=== PATIENT | male | born 1950 | race Caucasian/White ===

== ENCOUNTER 2017-07-07 16:36 | Emergency (ER) | payer OTHER ==
[2017-07-07 16:43] VITALS: BP 144/71; BMI 34.4
--- NOTE | 2017-07-07 17:00 | DR.GENAD ---
HPI - PCP Primary Care Physician: JAIME - HPI Comment HPI Comment: PATIENTS CONDITION WORSE TODAY. HAVE TENSE SWELLING IN LOWER EXTREMITIES AND REDNESS IS GETTING WORSE. NO FEVER OR DRAINAGE. SLIGHT WEEPING PRESENT. - Complaint/Symptoms Chief Complaint Doctors Comments: EDEMA AND REDNESS FEET AND ANKLE FOR SEVERAL WEEKS. 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 LOWER EXTREMITIES WITH EDEMA AND REDNESS NOTED. Self Treatment fo Chief Complaint: BEEN TO DOCTOR - Nurses notes reviewed Nurses Notes Review: Yes - Source History Provided: Patient - Mode of Arrival Mode of Arrival: Ambulatory - Timing Onset of Chief Complaint: 05/26/17 Came on: Gradually - Duration Duration: Constant Duration: Days - Severity Severity: Moderate PMH - PMH Past Medical History: Yes Past Medical History: Anxiety, Arthritis, COPD, CVA, Hypertension, Sleep Apnea Past Surgical History: Yes Surgical History: Ortho Surgery, Other Past Surgical History Comment: STENTS PLACED IN LEG - Family History History of Family Medical Conditions: Yes Family Medical History: Diabetes Mellitus, Cancer, [place] - Social History Type of Tobacco Use: Cigarettes How many years tobacco product used: 40 Does any household member use tobacco: Yes Alcohol Use: None Do you use any recreational Drugs:: No Lives With: Family Lives Where: Home - infectious screening In the last 2 months have you had wt loss of >10#?: NO Have you had fever, night sweats or hemotysis?: No Have you traveled outside the country in the last 6 months?: No Isolation: Standard ROS - Review of Systems Constitutional: Weakness, Fatigue. negative: Chills, Fever Eyes: No Symptoms Reported. negative: Eye Pain, Discharge ENTM: negative: Ear Pain, Nose Discharge, Nose Congestion, Throat Pain Respiratoy: Non-Productive Cough, Short of Breath, Wheezing. negative: Productive Cough, Hemoptysis Cardiovascular: Chest Pain, Edema. negative: Palpitations Gastrointestinal/Abdominal: No Symptoms Reported. negative: Abdominal Pain, Diarrhea, Nausea, Vomiting Genitourinary: No Symptoms Reported, Other (INCEASE URINE OUTPUT DUE TO LASIX.) . negative: Dysuria, Frequency, Hematuria Neurological: Weakness. negative: Headache, Dizziness Musculoskeletal: Joint Pain, Joint Swelling, Muscle Pain Integumentary: Change in Color, Rash Hematologic/Lymphatic: Easy Bleeding, Easy Bruising Endocrine: No Symptoms Reported All Other Systems: Reviewed and Negative PE - Vital Signs Vitals: Temperature 98.3 F Pulse Rate 69 Respiratory Rate 20 Blood Pressure 144/71 O2 Sat by Pulse Oximetry 98 - General Limitations: No Limitations General Appearance: Alert - Head Head Exam: Normal Inspection - Eyes Eye exam: Normal Appearance - ENT ENT Exam: Normal External Ear Exam External Ear Exam: Normal External Inspection TM/Canal Exam: Bilateral Normal Nose Exam: Normal Nose Exam Mouth Exam: Normal Inspection Throat Exam: Normal Inspection - Neck Neck Exam: Trachea Midline. negative: Tenderness, Meningismus, Lymphadenopathy - Chest Chest Inspection: Symmetric Chest Wall Rise - Respiratory Respiratory Exam: Respiratory Distress. negative: Chest Wall Tenderness Respiratory Exam: Bilateral Wheezing, Bilateral Rhonchi, Upper Rhonchi, Lower Wheezing, Lower Rhonchi - Cardiovascular Cardiovascular Exam: Regular Rate, Normal Rhythm, Normal Heart Sounds - Abdominal Exam Abdominal Exam: Normal Bowel Sounds, Soft. negative: Tenderness - Extremities Extremities Exam: Tenderness (BILATERAL TENDERNESS FEET AND ANKLE.), Edema, Joint Swelling - Back Back Exam: Normal Inspection - Neurologic Neurological Exam: Alert, Oriented X3 - Psychiatric Psychiatric Exam: Normal Affect, Normal Mood - Skin Skin Exam: Erythema MDM - Differential Diagnosis Differential Diagnosis: EDEMA, CELLULITIS, DVT Course - Treatment Treatment: SEE ORDERS. - Education/Counseling Education/Counseling: Patient, Family, Education Educated On: Treatment, Diagnosis, Needs for Follow Up ROR - Labs Reviewed Laboratory Results Reviewed?: Yes Result Diagrams: 07/07/17 17:22 07/07/17 17:22 Laboratory: WBC 8.4 X10^3/uL (3.6-10.0) 07/07/17 17:22 RBC 4.69 X10^6/uL (4.7-6.0) L 07/07/17 17:22 Hgb 14.2 g/dL (13.5-18.0) 07/07/17 17:22 Hct 41.9 % (42.0-54.0) L 07/07/17 17:22 MCV 89.4 fL (80.0-100.0) 07/07/17 17:22 MCH 30.3 pg (27.0-34.0) 07/07/17 17:22 MCHC 33.9 g/dL (33.0-35.0) 07/07/17 17:22 RDW 15.8 % (11.6-16.5) 07/07/17 17:22 Plt Count 167 X10^3/uL (150.0-450.0) 07/07/17 17:22 Plt Count Comment Adequate (ADEQUATE) 07/07/17 17: MPV 9.3 fL (7.4-11.0) 07/07/17 17:22 Neut % 93.2 % (42.0-75.0) H 07/07/17 17: Lymph % 4.2 % (21.0-51.0) L 07/07/17 17:22 [place]da % 2.1 % (0.0-13.0) 07/07/17 17:22 Eos % 0.2 % (0.9-2.9) L 07/07/17 17:22 Baso % 0.3 % (0.2-1.0) 07/07/17 17: Neut # 7.8 x10^3/uL (2.2-4.8) H 07/07/17 17: Lymph # 0.4 X10^3/uL (1.3-2.9) L 07/07/17 17:22 Ida # 0.2 x10^3/uL (0.3-0.8) L 07/07/17 17:22 Eos # 0.0 x10^3/uL (0.0-0.2) 07/07/17 17:22 Baso # 0.0 X10^3/uL (0.0-0.1) 07/07/17 17:22 Absolute Nucleated RBC 0.1 /100WBC 07/07/17 17:22 Total Counted 100 07/07/17 17:22 Neutrophils % (Manual) 89 % (39-76) H 07/07/17 17:22 Band Neutrophils % 3 % (0-10) 07/07/17 17:22 Lymphocytes % (Manual) 6 % (13-43) L 07/07/17 17:22 Monocytes % (Manual) 2 % (4-9) L 07/07/17 17:22 Plt Morphology Comment Normal (NORMAL) 07/07/17 17:22 RBC Morphology Normal (NORMAL) 07/07/17 17:22 Sodium 139 mmol/L (136-145) 07/07/17 17:22 Corrected Sodium 139 mmol/L (136-145) 07/07/17 17:22 Potassium 4.4 mmol/L (3.5-5.1) 07/07/17 17:22 Chloride 102 mmol/L (98-107) 07/07/17 17:22 Carbon Dioxide 28.4 mmol/L (21-32) 07/07/17 17:22 BUN 18 mg/dL (7-18) 07/07/17 17:22 Creatinine 1.47 mg/dL (0.70-1.30) H 07/07/17 17:22 Est GFR (MDRD) Af Amer > 60 (>60) 07/07/17 17:22 Est GFR (MDRD) Non-Af 51 (>60) L 07/07/17 17:22 Glucose 120 mg/dL (65-99) H 07/07/17 17:22 Calcium 8.7 mg/dL (8.5-10.1) 07/07/17 17:22 Corrected Calcium TNP 07/07/17 17:22 Total Bilirubin 0.50 mg/dL (0.2-1.0) 07/07/17 17:22 AST 15 Units/L (15-37) 07/07/17 17:22 ALT 19 Units/L (12-78) 07/07/17 17:22 Alkaline Phosphatase 110 Units/L (46-116) 07/07/17 17:22 Creatine Kinase 64 Units/L (39-308) 07/07/17 17:22 CK-MB (CK-2) 1.7 ng/mL (0-4.0) 07/07/17 17:22 CK/CKMB % Calc 2.7 % (<4) 07/07/17 17:22 Troponin I < 0.02 ng/mL (0-1.5) 07/07/17 17:22 B-Natriuretic Peptide 66.3 pg/mL (0-79) 07/07/17 17:22 Total Protein 7.5 g/dL (6.4-8.2) 07/07/17 17:22 Albumin 3.6 g/dL (3.4-5.0) 07/07/17 17:22 Globulin 3.9 g/dL (2.5-4.5) 07/07/17 17:22 Albumin/Globulin Ratio 0.9 Ratio (1.1-2.1) L 08/14/17 17:22 Specimen Type Clean catch urine 07/07/17 17:16 Urine Color Pale yellow (YELLOW) 07/07/17 17:16 Urine Appearance Clear (CLEAR) 07/07/17 17:16 Urine pH 7.0 (5.0 - 8.0) 07/07/17 17:16 Ur Specific [place] 1.010 (1.000-1.030) 07/07/17 17:16 Urine Protein Negative (NEGATIVE) 07/07/17 17:16 Urine Glucose (UA) Negative (NEGATIVE) 07/07/17 17:16 Urine Ketones Negative (NEGATIVE) 07/07/17 17:16 Urine Occult Blood Negative (NEGATIVE) 07/07/17 17:16 Urine Nitrite Negative (NEGATIVE) 07/07/17 17:16 Urine Bilirubin Negative (NEGATIVE) 07/07/17 17:16 Urine Urobilinogen Normal (NORMAL) 07/07/17 17:16 Ur Leukocyte Esterase Negative (NEGATIVE) 07/07/17 17:16 Urine RBC None seen /HPF (NEGATIVE) 07/07/17 17:16 Urine WBC None seen /HPF (NEGATIVE) 07/07/17 17:16 Ur Squamous Epith Cells Rare /HPF (NEGATIVE) 07/07/17 17:16 Urine Bacteria Negative /HPF (NEGATIVE) 07/07/17 17:16 Ur Culture Indicated? No/not indicated 07/07/17 17:16 - XRAY XRAY Interpreted by: Radiologist XRAY Findings: REPORT DISCUSS WITH PATIEN - EKG Rhythm: NSR - Diagnosis Discharge Problem: COPD, moderate Edema Qualifiers: Edema type: localized Qualified Code(s): R60.0 - Localized edema Cellulitis Qualifiers: Site of cellulitis: extremity Site of cellulitis of extremity: lower extremity Laterality: unspecified laterality Qualified Code(s): L03.119 - Cellulitis of unspecified part of limb Chest pain Qualifiers: Chest pain type: intercostal pain Qualified Code(s): R07.82 - Intercostal pain - Discharge Plan Disposition: 01 HOME, SELF-CARE Condition: Stable - Follow ups/Referrals Follow ups/Referrals: AVINASH BRIAN [Primary Care Provider] - 07/08/17 - Instructions Instructions: Cellulitis, Adult, Eyzo-me-[id number], Edema, [id number] Additional Instructions: RETURN TO ED IF WORSE. ELEVATE LOWER EXTREMITIES.
[2017-07-07 17:30] LABS: BILIRUBIN,URINE NEGATIVE (NEGATIVE); BLOOD/HEMOGLOBIN,URINE NEGATIVE (NEGATIVE); GLUCOSE, URINE NEGATIVE (NEGATIVE); KETONES,URINE NEGATIVE (NEGATIVE); LEUKOCYTE ESTERASE ,URINE NEGATIVE (NEGATIVE); NITRITES,URINE NEGATIVE (NEGATIVE); PROTEIN,URINE NEGATIVE (NEGATIVE); UROBILINOGEN,URINE NORMAL (NORMAL)
[2017-07-07 17:38] LABS: BASOPHILS % (AUTO) 0.3 % (0.2-1.0); EOSINOPHILS % (AUTO) 0.2 % (0.9-2.9); HEMATOCRIT 41.9 % (42.0-54.0); HEMOGLOBIN 14.2 g/dL (13.5-18.0); LYMPHOCYTES # (AUTO) 0.4 X10^3/uL (1.3-2.9); LYMPHOCYTES % (AUTO) 4.2 % (21.0-51.0); MEAN CORPUSCULAR HEMOGLOBIN 30.3 pg (27.0-34.0); MEAN CORPUSCULAR HGB CONC 33.9 g/dL (33.0-35.0); MEAN CORPUSCULAR VOLUME 89.4 fL (80.0-100.0); MEAN PLATELET VOLUME 9.3 fL (7.4-11.0); MONOCYTES # (AUTO) 0.2 x10^3/uL (0.3-0.8); MONOCYTES % (AUTO) 2.1 % (0.0-13.0); NEUTROPHILS # (AUTO) 7.8 x10^3/uL (2.2-4.8); NEUTROPHILS % (AUTO) 93.2 % (42.0-75.0); PLATELET COUNT 167 X10^3/uL (150.0-450.0); RED BLOOD COUNT 4.69 X10^6/uL (4.7-6.0); RED CELL DISTRIBUTION WIDTH 15.8 % (11.6-16.5); WHITE BLOOD COUNT 8.4 X10^3/uL (3.6-10.0)
[2017-07-07 17:43] LABS: APPEARANCE,URINE CLEAR (CLEAR); BACTERIA,URINE NEGATIVE /HPF (NEGATIVE); COLOR,URINE PALE YELLOW (YELLOW); RBC,URINE NONE SEEN /HPF (NEGATIVE); SQUAMOUS EPITHELIAL CELL,UR RARE /HPF (NEGATIVE)
--- NOTE | 2017-07-07 17:55 | RAD ---
HISTORY: Bilateral feet and leg edema. Study: Chest one view Comparison: None available for direct comparison. Findings: The trachea is midline. The cardiac silhouette is enlarged. There is mild central pulmonary vascula r congestion. No significant interstitial edema is appreciated. The lungs are clear without focal i nfiltrate or effusion. The bony thorax is unremarkable. IMPRESSION: 1. Cardiomegaly with central pulmonary vascular congestion. No significant interstitial edema. Reported By:
[2017-07-07 17:58] LABS: BLOOD UREA NITROGEN 18 mg/dL (7-18); CALCIUM 8.7 mg/dL (8.5-10.1); CARBON DIOXIDE 28.4 mmol/L (21-32); CHLORIDE 102 mmol/L (98-107); COR NA(FOR HYPERGLY) 139 mmol/L (136-145); CREATININE 1.47 mg/dL (0.70-1.30); GLUCOSE 120 mg/dL (65-99); SODIUM 139 mmol/L (136-145); TROPONIN I < 0.02 ng/mL (0-1.5); eGFR BLACK RACES > 60 (>60); eGFR NON BLACK RACES 51 (>60)
[2017-07-07 18:01] LABS: ALANINE AMINOTRANSFERASE 19 Units/L (12-78); ALBUMIN 3.6 g/dL (3.4-5.0); ALKALINE PHOSPHATASE 110 Units/L (46-116); ASPARTATE AMINO TRANSFERASE 15 Units/L (15-37); CKMB % 2.7 % (<4); CREATINE KINASE 64 Units/L (39-308); CREATINE KINASE MB 1.7 ng/mL (0-4.0); TOTAL PROTEIN 7.5 g/dL (6.4-8.2)
[2017-07-07 18:09] LABS: BAND NEUTROPHILS % 3 % (0-10); PLATELET MORPHOLOGY COMMENT NORMAL (NORMAL)
[2017-07-07 18:10] LABS: B-TYPE NATRIURETIC PEPTIDE 66.3 pg/mL (0-79)
[2017-07-07] MEDS ORDERED: LASIX IVP ONE ×2 (19:24→19:30)
[2017-07-07] MEDS ORDERED: BACTRIM DS TAB PO ONE ×2 (19:25→19:30)
== END 2017-07-07 20:14 | disposition home or self-care (01) ==
LOC: ER 16:48
DX: L03.119 Cellulitis of unspecified part of limb (principal); R07.82 Intercostal pain; R60.0 Localized edema; J44.9 Chronic obstructive pulmonary disease, unspecified
CPT/HCPCS: 36415; 71010; 80053; 81001; 82550; 82553; 83880; 84484; 85025; 87040; 93005; 93010; 96365; 96374; 99283; A4222; J1940

== ENCOUNTER → 2018-03-19 | Outpatient (CLI) | payer OTHER ==
[2018-03-19 16:41] LABS: BASOPHILS # (AUTO) 0.1 X10^3/uL (0.0-0.1); BASOPHILS % (AUTO) 1.2 % (0.2-1.0); EOSINOPHILS # (AUTO) 0.2 x10^3/uL (0.0-0.2); EOSINOPHILS % (AUTO) 2.6 % (0.9-2.9); HEMATOCRIT 37.9 % (42.0-54.0); HEMOGLOBIN 12.8 g/dL (13.5-18.0); LYMPHOCYTES % (AUTO) 11.2 % (21.0-51.0); MEAN CORPUSCULAR HEMOGLOBIN 30.4 pg (27.0-34.0); MEAN CORPUSCULAR HGB CONC 33.8 g/dL (33.0-35.0); MEAN CORPUSCULAR VOLUME 89.8 fL (80.0-100.0); MEAN PLATELET VOLUME 8.8 fL (7.4-11.0); MONOCYTES # (AUTO) 0.7 x10^3/uL (0.3-0.8); NEUTROPHILS # (AUTO) 6.8 x10^3/uL (2.2-4.8); PLATELET COUNT 224 X10^3/uL (150.0-450.0); RED BLOOD COUNT 4.22 X10^6/uL (4.7-6.0); RED CELL DISTRIBUTION WIDTH 15.9 % (11.6-16.5); WHITE BLOOD COUNT 8.8 X10^3/uL (3.6-10.0)
[2018-03-19 16:44] LABS: BLOOD UREA NITROGEN 12 mg/dL (7-18); CALCIUM 8.5 mg/dL (8.5-10.1); CARBON DIOXIDE 29.4 mmol/L (21-32); CHLORIDE 102 mmol/L (98-107); CREATININE 1.16 mg/dL (0.70-1.30); SODIUM 138 mmol/L (136-145); eGFR BLACK RACES > 60 (>60); eGFR NON BLACK RACES > 60 (>60)
== END ==
LOC: LAB 16:13
PROVIDERS: ATTEND Surgery Vascular Surgery
DX: Z01.812 Encounter for preprocedural laboratory examination (principal); I70.235 Atherosclerosis of native arteries of right leg with ulceration of other part of foot
CPT/HCPCS: 36415; 80048; 85025

== ENCOUNTER 2018-10-20 13:31 | Observation (INO) ==
--- NOTE | 2018-10-20 14:36 | DR.EXTPAIN ---
HPI Time seen Time Seen by Provider: 10/20/18 14:20 PCP Primary Care Physician: CHIP PAUL HPI Comment HPI Comment: PATIENT SAID IT STARTED A SMALL PUSTULAR LESION. IF DRAIN PUS THEN STARTED TO BLEED. NOW BOTH BLOOD AND PUS DRAING. INCREASING SWELLING AND PAIN WITH REDNESS DEVELOPING. NO FEVER. Complaint/Symptoms Chief Complaint Doctor Comments: RIGHT LOWER EXTREMITY PAIN WITH INFECTED WOUND AND REDNESS TIMES 5 DAYS. Chief Complaint:: PT STATES ABOUT 5 DAYS AGO HE WOKE UP AND NOTICED THAT HE HAD A KNOT ON THE FRONT OF RIGHT LEG. DOESN'T REMEMBER BUMPING IT ON ANYTHING. SINCE THEN THE AREA HAS BEEN DRAINING PUSS. PT CALLED DR WARE, VASCULAR SURGEON, WHO INSTRUCTED HIM TO COME TO ER. Self Treatment fo Chief Complaint: PT'S HAS BEEN CLEANING WITH DAKINS TWICE DAILY. Nurses notes reviewed Nurses Notes Review: Yes Source History Provided: Patient Mode of arrival Mode of Arrival: Ambulatory Timing Onset of Chief Complaint: 10/16/18 Context History of: None Associated signs and symptoms Associated Signs and Symptoms: Pain, Swelling, Bruising and Shortness of Breath PMH PMH Past Medical History: Yes Past Medical History: COPD, Dyslipidemia, Hypertension and Sleep Apnea Past Medical History Comment: PVD Past Surgical History: Yes Past Surgical History Comment: MULTIPLE EYE SURGERIES, STENTS IN LEFT LEG X 3 Family History History of Family Medical Conditions: Yes Family Medical History: Diabetes Mellitus, Cancer, Coronary Artery Disease and Hypertension Social History Does patient currently use any type of tobacco product: Yes Have you used tobacco products in the last 12 months: No Type of Tobacco Use: Cigarettes Does any household member use tobacco: Yes Alcohol Use: None Do you use any recreational Drugs:: No Lives With: Spouse Lives Where: Home infectious screening In the last 2 months have you had wt loss of >10#?: NO Have you had fever, night sweats or hemotysis?: No Have you traveled outside the country in the last 6 months?: No Isolation: Standard ROS Review of Systems Constitutional: Fatigue; negative Chills and Fever Eyes: No Symptoms Reported; negative Eye Pain and Discharge ENTM: Nose Congestion Respiratoy: Non-Productive Cough, Short of Breath and Wheezing Cardiovascular: Edema Gastrointestinal/Abdominal: No Symptoms Reported Genitourinary: No Symptoms Reported Neurological: Headache and Dizziness Musculoskeletal: Muscle Pain, Right, Leg, Ankle and Foot Integumentary: Rash, Itching and Wound (WOUND, DRAINING MID ANTERIOR LEG RT SIDE.) Endocrine: No Symptoms Reported Psychiatric: No Symptoms Reported All Other Systems: Reviewed and Negative PE Vital Signs Vitals: Temperature 97.6 F Pulse Rate [Right Brachial] 63 Pulse Rate 81 Respiratory Rate 18 Blood Pressure [Right Arm] 160/72 Blood Pressure 131/61 O2 Sat by Pulse Oximetry 99 General Limitations: No Limitations General Appearance: Alert and In No Apparent Distress Head Head Exam: Normal Inspection Eyes Eye exam: Normal Appearance ENT ENT Exam: Normal Oropharynx, Normal External Ear Exam, Mucous Membranes Moist and TM's Normal Bilaterally Neck Neck Exam: Trachea Midline; negative Tenderness, Meningismus and Lymphadenopathy Chest Chest Inspection: Symmetric Chest Wall Rise Respiratory Respiratory Exam: Normal Lung Sounds Bilat Respiratory Exam: Bilateral: Rhonchi and Lower: Rhonchi Cardiovascular Cardiovascular Exam: Regular Rate and Normal Rhythm Abdominal Exam Abdominal Exam: Normal Bowel Sounds; negative Tenderness Extremities Extremities Exam: Tenderness (RIGHT LEG REDNESS WITH DRAINING WOUND.) Lower Extremities Neurovascular/Tendon Exam: Normal Capillary Refill; negative Pulse Deficit, Motor Deficit and Sensory Deficit Gait Exam: Observed & Limited by Pain Back Back Exam: Normal Inspection Neurological Neurological Exam: Alert, Oriented X3 and CN II-XII Intact; negative Motor Sensory Deficit Psychiatric Psychiatric Exam: Normal Affect and Normal Mood Skin Type of Lesion: Abscess Distribution: RLE Description: Tenderness, Erythematous and Swelling MDM Differential Diagnosis Differential Diagnosis: Other (CELLULITIS AND DRAINIG WOUND RIGHT LEG.) COURSE Treatment Treatment: SEE ORDERS. Consultation Consultation Comments: DISCUSS PATIENT WITH DR. RODAS, HE WILL ADMIT PATIENT. Education/Counseling Education/Counseling: Patient and Family Educated On: Diagnosis ROR Labs Reviewed Laboratory Results Reviewed?: Yes Result Diagrams: 10/20/18 14:50 10/20/18 14:50 Laboratory: 10/20/18 14:52 Leg - Right Gram Stain - Final WBC 7.0 X10^3/uL (3.6-10.0) 10/20/18 14:50 RBC 4.35 X10^6/uL (4.7-6.0) L 10/20/18 14:50 Hgb 13.2 g/dL (13.5-18.0) L 10/20/18 14:50 Hct 39.0 % (42.0-54.0) L 10/20/18 14:50 MCV 89.7 fL (80.0-100.0) 10/20/18 14:50 MCH 30.3 pg (27.0-34.0) 10/20/18 14:50 MCHC 33.7 g/dL (33.0-35.0) 10/20/18 14:50 RDW 15.9 % (11.6-16.5) 10/20/18 14:50 Plt Count 336 X10^3/uL (150.0-450.0) 10/20/18 14:50 MPV 8.1 fL (7.4-11.0) 10/20/18 14:50 Neut % (Auto) 81.8 % (42.0-75.0) H 10/20/18 14:50 Lymph % (Auto) 10.2 % (21.0-51.0) L 10/20/18 14:50 [place] % (Auto) 5.3 % (0.0-13.0) 10/20/18 14:50 Eos % (Auto) 2.1 % (0.9-2.9) 10/20/18 14:50 Baso % (Auto) 0.6 % (0.2-1.0) 10/20/18 14:50 Neut # (Auto) 5.7 x10^3/uL (2.2-4.8) H 10/20/18 14:50 Lymph # (Auto) 0.7 X10^3/uL (1.3-2.9) L 10/20/18 14:50 [place] # (Auto) 0.4 x10^3/uL (0.3-0.8) 10/20/18 14:50 Eos # (Auto) 0.1 x10^3/uL (0.0-0.2) 10/20/18 14:50 Baso # (Auto) 0.0 X10^3/uL (0.0-0.1) 10/20/18 14:50 Absolute Nucleated RBC 0.0 /100WBC 10/20/18 14:50 Sodium 139 mmol/L (136-145) 10/20/18 14:50 Corrected Sodium TNP 10/20/18 14:50 Potassium 4.0 mmol/L (3.5-5.1) 10/20/18 14:50 Chloride 102 mmol/L (98-107) 10/20/18 14:50 Carbon Dioxide 27.1 mmol/L (21-32) 10/20/18 14:50 BUN 6 mg/dL (7-18) L 10/20/18 14:50 Creatinine 1.07 mg/dL (0.70-1.30) 10/20/18 14:50 Est GFR (MDRD) Af Amer > 60 (>60) 10/20/18 14:50 Est GFR (MDRD) Non-Af > 60 (>60) 10/20/18 14:50 Glucose 95 mg/dL (65-99) 10/20/18 14:50 Lactic Acid 0.9 mmol/L (0.4-2.0) 10/20/18 14:50 Calcium 8.5 mg/dL (8.5-10.1) 10/20/18 14:50 Corrected Calcium 9.3 mg/dL (8.5-10.1) 10/20/18 14:50 Total Bilirubin 0.40 mg/dL (0.2-1.0) 10/20/18 14:50 AST 16 Units/L (15-37) 10/20/18 14:50 ALT 18 Units/L (12-78) 10/20/18 14:50 Alkaline Phosphatase 107 Units/L (46-116) 10/20/18 14:50 C-Reactive Protein 36.50 mg/L (0-3.0) H 10/20/18 14:50 Total Protein 7.1 g/dL (6.4-8.2) 10/20/18 14:50 Albumin 3.0 g/dL (3.4-5.0) L 10/20/18 14:50 Globulin 4.1 g/dL (2.5-4.5) 10/20/18 14:50 Albumin/Globulin Ratio 0.7 Ratio (1.1-2.1) L 10/20/18 14:50 XRAY XRAY Interpreted by: Radiologist XRAY Findings: REPORT DISCUSS WITH PATIENT. EKG [place]: Normal Rhythm: NSR
[2018-10-20 15:09] LABS: BASOPHILS % (AUTO) 0.6 % (0.2-1.0); EOSINOPHILS # (AUTO) 0.1 x10^3/uL (0.0-0.2); EOSINOPHILS % (AUTO) 2.1 % (0.9-2.9); HEMOGLOBIN 13.2 g/dL (13.5-18.0); LYMPHOCYTES # (AUTO) 0.7 X10^3/uL (1.3-2.9); LYMPHOCYTES % (AUTO) 10.2 % (21.0-51.0); MEAN CORPUSCULAR HEMOGLOBIN 30.3 pg (27.0-34.0); MEAN CORPUSCULAR HGB CONC 33.7 g/dL (33.0-35.0); MEAN CORPUSCULAR VOLUME 89.7 fL (80.0-100.0); MEAN PLATELET VOLUME 8.1 fL (7.4-11.0); MONOCYTES # (AUTO) 0.4 x10^3/uL (0.3-0.8); MONOCYTES % (AUTO) 5.3 % (0.0-13.0); NEUTROPHILS # (AUTO) 5.7 x10^3/uL (2.2-4.8); NEUTROPHILS % (AUTO) 81.8 % (42.0-75.0); PLATELET COUNT 336 X10^3/uL (150.0-450.0); RED BLOOD COUNT 4.35 X10^6/uL (4.7-6.0); RED CELL DISTRIBUTION WIDTH 15.9 % (11.6-16.5)
--- NOTE | 2018-10-20 15:11 | RAD ---
Exam: Right lower leg two views History: 67-year-old male who presents with soft tissue swelling along the anterior aspect of the right lower leg. No reported history of trauma Comparison: None Findings: AP and lateral views of the right tibia and fibula demonstrate no evidence of acute bony abnormality. No radiographic signs of osteomyelitis. No radiopaque foreign body is identified. Impression: Negative radiographs of the right tibia and fibula. Reported By:
[2018-10-20 15:29] LABS: ALANINE AMINOTRANSFERASE 18 Units/L (12-78); ALKALINE PHOSPHATASE 107 Units/L (46-116); ASPARTATE AMINO TRANSFERASE 16 Units/L (15-37); BLOOD UREA NITROGEN 6 mg/dL (7-18); CALCIUM 8.5 mg/dL (8.5-10.1); CARBON DIOXIDE 27.1 mmol/L (21-32); CHLORIDE 102 mmol/L (98-107); COR CA(FOR HYPOALB) 9.3 mg/dL (8.5-10.1); CREATININE 1.07 mg/dL (0.70-1.30); SODIUM 139 mmol/L (136-145); TOTAL PROTEIN 7.1 g/dL (6.4-8.2); eGFR NON BLACK RACES > 60 (>60)
[2018-10-20 15:33] LABS: LACTIC ACID 0.9 mmol/L (0.4-2.0)
[2018-10-20] MEDS ORDERED: MOTRIN TAB 600 MG PO PRN (17:43)
[2018-10-20] MEDS ORDERED: ZOFRAN INJ 4 MG VIAL IVP PRN (17:43)
[2018-10-20] MEDS ORDERED: MORPHINE SULFATE INJ 2 MG INJ IVP PRN (17:43)
[2018-10-20] MEDS ORDERED: PHARMACY CONSULT - VANCOMYCIN XX SCH (18:00)
[2018-10-20 19:11] VITALS: BMI 31.8
[2018-10-20] MEDS ORDERED: NS 250 ML IV 250 ML IV SCH (19:30)
[2018-10-20] MEDS ORDERED: NS 1000 ML 1,000 ML IV SCH (20:00)
[2018-10-20] MEDS: VANCOMYCIN HCL 1 GM VIAL 1 G in D5W 250 ML IV 250 ML IV SCH (20:37)
[2018-10-20] MEDS: XANAX PO SCH ×2 (20:38→21:52)
[2018-10-20] MEDS: ZOSYN VIAL 3.375 GRAMS 3.375 G in NS 100 ML IV + SPIKE MINIBAG* 100 ML IV SCH (21:52)
[2018-10-21] MEDS: ZOSYN VIAL 3.375 GRAMS 3.375 G in NS 100 ML IV + SPIKE MINIBAG* 100 ML IV SCH ×2 (05:11→14:30)
[2018-10-21 05:21] LABS: BASOPHILS % (AUTO) 0.6 % (0.2-1.0); EOSINOPHILS # (AUTO) 0.2 x10^3/uL (0.0-0.2); EOSINOPHILS % (AUTO) 2.9 % (0.9-2.9); HEMATOCRIT 35.4 % (42.0-54.0); HEMOGLOBIN 11.8 g/dL (13.5-18.0); LYMPHOCYTES # (AUTO) 0.8 X10^3/uL (1.3-2.9); LYMPHOCYTES % (AUTO) 14.3 % (21.0-51.0); MEAN CORPUSCULAR HEMOGLOBIN 29.9 pg (27.0-34.0); MEAN CORPUSCULAR HGB CONC 33.3 g/dL (33.0-35.0); MEAN CORPUSCULAR VOLUME 89.8 fL (80.0-100.0); MONOCYTES # (AUTO) 0.4 x10^3/uL (0.3-0.8); MONOCYTES % (AUTO) 6.3 % (0.0-13.0); NEUTROPHILS # (AUTO) 4.5 x10^3/uL (2.2-4.8); NEUTROPHILS % (AUTO) 75.9 % (42.0-75.0); PLATELET COUNT 305 X10^3/uL (150.0-450.0); RED BLOOD COUNT 3.94 X10^6/uL (4.7-6.0); RED CELL DISTRIBUTION WIDTH 15.9 % (11.6-16.5); WHITE BLOOD COUNT 5.9 X10^3/uL (3.6-10.0)
[2018-10-21 05:45] LABS: ALANINE AMINOTRANSFERASE 16 Units/L (12-78); ALBUMIN 2.5 g/dL (3.4-5.0); ALKALINE PHOSPHATASE 91 Units/L (46-116); ASPARTATE AMINO TRANSFERASE 14 Units/L (15-37); BLOOD UREA NITROGEN 6 mg/dL (7-18); CALCIUM 8.2 mg/dL (8.5-10.1); CARBON DIOXIDE 28.9 mmol/L (21-32); CHLORIDE 106 mmol/L (98-107); COR CA(FOR HYPOALB) 9.4 mg/dL (8.5-10.1); CREATININE 0.99 mg/dL (0.70-1.30); SODIUM 142 mmol/L (136-145); eGFR NON BLACK RACES > 60 (>60)
--- NOTE | 2018-10-21 08:57 | RAD ---
History: COPD. Right upper extremity cellulitis. Study: AP chest Comparison: June 2017 Findings: The lungs are mildly hyperinflated. The heart size is normal. There are mildly increased diffuse chronic interstitial lung markings. There is no edema or effusion. Impression: Probable COPD, no evidence for acute disease Reported By:
[2018-10-21] MEDS ORDERED: NICOTINE PATCH TD SCH (09:00)
[2018-10-21] MEDS ORDERED: FUROSEMIDE PO SCH (09:00)
[2018-10-21] MEDS ORDERED: PATIENT'S HOME MEDICATION (Clopidogrel Bisulfate [Clopidogrel] 1 TAB) PO SCH (09:00)
[2018-10-21] MEDS ORDERED: KENALOG OINT EXT SCH (09:00)
[2018-10-21] MEDS ORDERED: PLAVIX PO SCH (09:00)
[2018-10-21] MEDS ORDERED: MICRO K EXTEN CAP 10 MEQ PO SCH (09:00)
[2018-10-21] MEDS ORDERED: LASIX PO SCH (09:00)
[2018-10-21] MEDS ORDERED: ASPIRIN PO SCH (09:00)
[2018-10-21] MEDS ORDERED: PATIENT'S HOME MEDICATION (Fluticasone-Umeclidin-Vilanter [Fluticasone-Umeclidin-Vilanter] IN SCH (09:00)
[2018-10-21] MEDS ORDERED: VASOTEC TAB 20 MG PO SCH (09:00)
[2018-10-21] MEDS: VANCOMYCIN HCL 1 GM VIAL 1 G in D5W 250 ML IV 250 ML IV SCH (09:33)
[2018-10-21] MEDS: LASIX IVP ONE ×2 (09:34→09:36)
[2018-10-21] MEDS: XANAX PO SCH (09:38)
--- NOTE | 2018-10-21 16:55 | DR.CARTERS ---
Short Stay Summary - Short Stay Summary for: Short Stay Summary for Date of:: 10/21/18 - Admission Date Date of Admission: 10/20/18 - Discharge Date Discharge Date: 10/21/18 - Admission Diagnoses (1) Cellulitis Status: Acute (2) COPD, moderate Status: Acute - Discharge Medications Discharge Medications: Home Medication List alprazolam [Xanax] 0.25 mg PO BID 10/20/18 [History] aspirin 325 mg PO QDAY 10/20/18 [History] [id number] [Trelegy Ellipta] 1 puff INHALATION DAILY 10/20/18 [History] sulfamethoxazole-trimethoprim [Bactrim DS] 1 tab PO Q12H #20 tab 10/21/18 [Rx] Prescriptions: sulfamethoxazole-trimethoprim [Bactrim DS] IDA PHELPS - Discharge Plan Disposition: 01 HOME, SELF-CARE Condition: Stable Prescriptions: sulfamethoxazole-trimethoprim [Bactrim DS] 1 tab PO Q12H #20 tab - Follow up/Referrals Follow up/Referrals: IDA PHELPS [Primary Care Provider] - 3 days - Instructions Additional Instructions: RESUME HOME MEDICATIONS ELEVATE BILATERAL LOWER EXTREMITIES BACTRIM DS BID WOUND CARE, FOLLOW UP WITH DR RODAS IN ONE WEEK CTA LOWER EXTREMITIES, F/U DR MARES SCHEDULED
[2018-10-21 17:11] VITALS: BP 171/79
[2018-10-21] MEDS ORDERED: ZOCOR TAB 40 MG PO SCH (21:00)
[2018-10-21] MEDS ORDERED: SIMVASTATIN 40 MG PO SCH (21:00)
[2018-10-22] MEDS ORDERED: PHARMACY COMMENT IV NR (08:30)
[2018-10-22] MEDS ORDERED: PATIENT'S HOME MEDICATION PO SCH (09:00)
== END 2018-10-21 18:35 | disposition home or self-care (01) ==
LOC: ER 13:35 → MED/SURG 13:35
PROVIDERS: ADMIT Internal Medicine; ATTEND Internal Medicine
DX: L03.115 Cellulitis of right lower limb; R60.0 Localized edema; J44.9 Chronic obstructive pulmonary disease, unspecified; R79.82 Elevated C-reactive protein (CRP); E78.2 Mixed hyperlipidemia; I10 Essential (primary) hypertension; R06.02 Shortness of breath
CPT/HCPCS: 36415; 71010; 71045; 73590; 80053; 83605; 85025; 86140; 87040; 87070; 87075; 87205; 93005; 93010; 94760; 96365; 96367; 96374; 99283; 99284; A4222; G0378; J1940; J2543; J3370; J7030; J7050; J7060